=== PATIENT | female | born 1950 | race African-American/Black ===

== ENCOUNTER 2017-04-11 22:12 | Emergency (ER) | payer OTHER ==
[2017-04-11 22:20] VITALS: BMI 38.3
--- NOTE | 2017-04-11 22:36 | PDOC ---
History of Present Illness - General History Source: Patient Exam Limitations: No Limitations - History of Present Illness Initial Comments: 04/11/17 23:11 The patient is a 66 year old female post-procedure day 7 with significant past medical history of recent cardiac catheterization (04/04/17), hypertension, diabetes (diet-controlled), SBO, asthma, and breast CA who presents to the ED for nausea that began earlier today. Patient reports she was in her usual state of health prior to going to bed last night when she woke up this morning with nausea. States having a few episodes of nonbloody vomiting throughout the day. Last meal was around 4pm this evening and subsequently she became more nauseous with mild diffuse abdominal pain. Denies any diarrhea. Patient reports no complications post catheterization procedure, which she had done at [facility]. States she is compliant with her medications. The patient denies fever, chills, cough, SOB, chest pain, and palpitations. The patient denies dysuria, hematuria, urgency, and frequency. Allergies: prednisone, sulfamethoxazole, trimethoprim, IV contrast Social History: No alcohol, tobacco, or drug use reported. Past Surgical History: cardiac catheterization (04/04/17), SBO s/p small bowel resection, hysterectomy PCP: Dr. Kwesi Gomes <Jael Freedman - Last Filed: 04/11/17 23:33> - General History Source: Patient <Rod Benavidez - Last Filed: 04/12/17 04:31> - General Chief Complaint: Nausea/Vomiting Stated Complaint: BLOOD SUGAR PROBLEM Time Seen by Provider: 04/11/17 22:33 Past History <Jael Freedman - Last Filed: 04/11/17 23:33> - Past Medical History Asthma: Yes Cancer: Yes (Breast Ca) Diabetes: Yes GI Disorders: Yes (BOWEL OBSTRUCTION) - Surgical History Abdominal Surgery: (Small Bowel Resection) Cardiac Surgery: Yes (cardiac catheterization) - Immunization History Td Vaccination: No Immunization Up to Date: Yes (FLU UTD) - Psycho/Social/Smoking Cessation Hx Anxiety: No Suicidal Ideation: No Smoking Status: No Smoking History: Never smoked Have you smoked in the past 12 months: No Number of Cigarettes Smoked Daily: 0 Hx Alcohol Use: No Drug/Substance Use Hx: No Substance Use Type: None Hx Substance Use Treatment: No <Rod Benavidez - Last Filed: 04/12/17 04:31> - Past Medical History Allergies/Adverse Reactions: Allergies Allergy/AdvReac Type Severity Reaction Status Date / Time prednisone Allergy Intermediate Swelling Verified 04/12/17 03:05 sulfamethoxazole Allergy Intermediate Swelling Verified 04/12/17 03:05 [From Bactrim DS] trimethoprim Allergy Intermediate Swelling Verified 04/12/17 03:05 [From Bactrim DS] Shellfish Allergy Hives Verified 04/12/17 03:05 wheat [Wheat] Allergy Vomiting Verified 04/12/17 03:05 nuts Allergy Itching Uncoded 04/12/17 03:05 peaches, pears, apples Allergy Vomiting Uncoded 04/12/17 03:05 (juice OK) iv contrast AdvReac Intermediate Uncoded 04/12/17 03:05 Home Medications: Ambulatory Orders Acetaminophen [Tylenol .Regular Strength -] 650 mg PO Q6H PRN #0 tablet Montelukast Na [Singulair -] 10 mg PO HS #0 tablet 02/12/13 Oxycodone HCl/Acetaminophen [Percocet 5-325 mg Tablet] 1 combo PO Q6H PRN #0 tablet 02/12/13 Pantoprazole Sodium [Protonix -] 40 mg PO DAILY #0 tablet.ec 02/12/13 Albuterol Sulfate [Proair Respiclick] 90 mcg IH DAILY 04/11/17 Cyanocobalamin [Vitamin B12 -] 0 mcg PO DAILY 04/11/17 Diltiazem Cd [Cardizem Cd -] 180 mg PO DAILY 04/11/17 Mometasone/Formoterol [Dulera 200 Mcg/5 Mcg Inhaler] 2 inh IH DAILY 04/11/17 Ramipril 5 mg PO DAILY 04/11/17 Vitamin E 0 unit PO DAILY 04/11/17 Ondansetron [Zofran *Odt*] 4 mg SL TID #30 od.tablet 04/12/17 Oxycodone HCl/Acetaminophen [Percocet 5-325 mg Tablet] 1 - 2 tab PO Q6H #20 tablet MDD 4 04/12/17 Review of Systems - Review of Systems Able to Perform ROS?: Yes Comments:: 04/11/17 23:11 CONSTITUTIONAL: Absent: fever, no chills, no fatigue EYES: Absent: visual changes ENT: Absent: ear pain, no sore throat CARDIOVASCULAR: Absent: chest pain, no palpitations RESPIRATORY: Absent: cough, no SOB GI: +diffuse abdominal pain, nausea, vomiting Absent: no constipation, no diarrhea GENITOURINARY: Absent: dysuria, no frequency, no hematuria MUSCULOSKELETAL: Absent: back pain, no arthralgia, no myalgia SKIN: Absent: rash NEURO: Absent: headache <Jael Freedman - Last Filed: 04/11/17 23:33> *Physical Exam - Vital Signs Last Vital Signs Temp Pulse Resp BP Pulse Ox 98.2 F 76 20 130/70 93 L 04/11/17 22:17 04/11/17 22:17 04/11/17 22:17 04/11/17 22:17 04/11/17 22:17 - Physical Exam Comments: 04/11/17 23:12 GENERAL: Well-appearing, well-nourished. No apparent distress. HEENT: Normocephalic, atraumatic. PERRL, EOM intact. CARDIOVASCULAR: Normal S1, S2. Regular rate and rhythm. PULMONARY: Clear to auscultation bilaterally. ABDOMEN: Soft, non-distended, mild diffuse abdominal tenderness. No rebound or guarding. Normoactive bowel sounds. EXTREMITIES: Normal ROM in all four extremities. No gross deformities. SKIN: Warm, dry. No rash NEUROLOGICAL: No focal neurological deficits. <Jael Freedman - Last Filed: 04/11/17 23:33> - Vital Signs Last Vital Signs Temp Pulse Resp BP Pulse Ox 98.2 F 76 20 130/70 93 L 04/11/17 22:17 04/11/17 22:17 04/11/17 22:17 04/11/17 22:17 04/11/17 22:17 <Rod Benavidez - Last Filed: 04/12/17 04:31> Heart Score/ECG Review - ECG Impressions Comment:: 04/11/17 23:33 Sinus rhythm with marked sinus arrhythmia @80bpm Minimal voltage criteria for LVH, may be normal variant Septal infarct, age undetermined Abnormal ECG <SolitariomichaelJael alvarado - Last Filed: 04/11/17 23:33> ED Treatment Course - LABORATORY CBC & Chemistry Diagram: 04/11/17 23:28 04/11/17 23:28 - ADDITIONAL ORDERS Additional order review: Laboratory Results 04/11/17 22:40 POC Glucometer [id number] 04/11/17 22:40 POC Glucometer [id number] <Jael Freedman - Last Filed: 04/11/17 23:33> - LABORATORY CBC & Chemistry Diagram: 04/11/17 23:28 04/11/17 23:28 <Rod Benavidez - Last Filed: 04/12/17 04:31> Medical Decision Making - Medical Decision Making 04/12/17 04:29 Dr. Benavidez: The scribe's documentation has been prepared under my direction and personally reviewed by me in its entirery. I confirm that the note above accurately reflects all work, treatment, procedures, and medical decision making performed by me. Pt found to have a fat containing ventral hernia on CT scan abd/pel. Pt feels slightly better. Will discharge and refer to General surgery <Rod Benavidez - Last Filed: 04/12/17 04:31> *DC/Admit/Observation/Transfer - Attestations Scribe Attestion: 04/11/17 23:12 Documentation prepared by Jael Freedman, acting as nurses medical assistants phlebotomists for Rod Benavidez MD/DO. <Jael Freedman - Last Filed: 04/11/17 23:33> - Discharge Dispostion Admit: No <Rod Benavidez - Last Filed: 04/12/17 04:31> Diagnosis at time of Disposition: Ventral hernia Qualifiers: Obstruction and gangrene presence: without obstruction or gangrene Qualified Code(s): K43.9 - Ventral hernia without obstruction or gangrene - Discharge Dispostion Disposition: HOME Condition at time of disposition: Stable - Referrals Referrals: wKesi Gomes MD [Primary Care Provider] - Gera Valdez MD [Staff Physician] - Glen Coleman MD [Staff Physician] - - Patient Instructions Printed Discharge Instructions: DI for Ventral Hernia - Post Discharge Activity Work/School Note: Back to Work
[2017-04-11] MEDS ORDERED: SODIUM CHLORIDE 1,000 ML IV STA (22:37)
[2017-04-11] MEDS ORDERED: ONDANSETRON 4 MG/2 ML VIAL IVPUSH STA (22:37)
[2017-04-11] MEDS ORDERED: FAMOTIDINE 20 MG/50 ML IVPB 20 MG in PREMIX 50 IVPB ONE (22:37)
[2017-04-11 23:32] LABS: BASOPHIL 0.3 % (0-2.0); EOSINOPHIL 0.3 % (0-4.5); MCH 31.6 pg (25.7-33.7); MCHC 32.7 g/dl (32.0-36.0); MEAN CELL VOLUME 96.4 fl (80-96); MEAN PLT VOLUME 8.1 fl (7.5-11.1); NEUTROPHILS 88.2 % (42.8-82.8); PLATELET COUNT 224 K/MM3 (134-434); RDW 13.5 % (11.6-15.6); WHITE BLOOD COUNT 9.6 K/mm3 (4.0-10.0)
[2017-04-11 23:59] LABS: ALBUMIN 3.5 g/dl (3.4-5.0); AMYLASE 86 U/L (25-115); ANION GAP 9 (8-16); CALCIUM 9.6 mg/dL (8.5-10.1); CO2 31 mmol/L (21-32); CREATININE 0.9 mg/dL (0.55-1.02); GLUCOSE,RANDOM 146 mg/dL (74-106); MAGNESIUM 2.5 mg/dL (1.8-2.4); SGOT/AST 17 U/L (15-37); SGPT/ALT 21 U/L (12-78)
[2017-04-12 00:01] LABS: ALK PHOS 84 U/L (45-117); BILIRUBIN,TOTAL 0.3 mg/dL (0.2-1.0); TOT PROT 7.6 g/dl (6.4-8.2); TROPONIN I < 0.02 ng/ml (0.00-0.05)
[2017-04-12] MEDS ORDERED: FAMOTIDINE 20 MG/50 ML IVPB 50 ML IVPB ONE (00:12)
[2017-04-12 00:14] LABS: INR 1.04 (0.82-1.09); PROTHROMBIN TIME (PATIENT) 11.4 SEC (9.98-11.88)
[2017-04-12] MEDS ORDERED: morphine CARPU-JECT 2 MG/1 ML DISP.SYRIN IVPUSH ONE (00:40)
[2017-04-12] MEDS ORDERED: morphine CARPU-JECT 4 MG/1 ML DISP.SYRIN ONE (00:53)
[2017-04-12 00:59] LABS: ACETONE SERUM NEGATIVE (NEGATIVE)
[2017-04-12 04:17] LABS: URINE APPEARANCE CLEAR; URINE BILIRUBIN NEGATIVE (NEGATIVE); URINE BLOOD NEGATIVE (NEGATIVE); URINE COLOR YELLOW; URINE GLUCOSE (UA) NEGATIVE (NEGATIVE); URINE KETONE NEGATIVE (NEGATIVE); URINE LEUK ESTERASE NEGATIVE (NEGATIVE); URINE NITRITE NEGATIVE (NEGATIVE); URINE PROTEIN NEGATIVE (NEGATIVE); URINE UROBILINOGEN NEGATIVE E.U./dl (0.2-1.0)
[2017-04-12 04:37] VITALS: BP 126/78; PULSE 73; TEMP 98
--- NOTE | 2017-04-13 16:33 | EKG ---
Test Reason : Blood Pressure : / mmHG Vent. Rate : 080 BPM Atrial Rate : 080 BPM P-R Int : 146 ms QRS Dur : 090 ms QT Int : 380 ms P-R-T Axes : 050 044 041 degrees QTc Int : 438 ms SINUS RHYTHM WITH MARKED SINUS ARRHYTHMIA MINIMAL VOLTAGE CRITERIA FOR LVH, MAY BE NORMAL VARIANT SEPTAL INFARCT , AGE UNDETERMINED ABNORMAL ECG WHEN COMPARED WITH ECG OF 27-OCT-2009 11:31, SEPTAL INFARCT IS NOW PRESENT Confirmed by ORI WILLIAMSON MD ([id number]) on 04/13/2017 4:33:24 PM Referred By: Confirmed By:ORI WILLIAMSON MD
--- NOTE | 2017-04-16 16:36 | EKG ---
Test Reason : Blood Pressure : / mmHG Vent. Rate : 079 BPM Atrial Rate : 079 BPM P-R Int : 146 ms QRS Dur : 096 ms QT Int : 390 ms P-R-T Axes : 022 040 038 degrees QTc Int : 447 ms NORMAL SINUS RHYTHM MINIMAL VOLTAGE CRITERIA FOR LVH, MAY BE NORMAL VARIANT BORDERLINE ECG WHEN COMPARED WITH ECG OF 11-APR-2017 23:24, NO SIGNIFICANT CHANGE WAS FOUND Confirmed by THERON SANTIAGO MD ([id number]) on 04/16/2017 4:35:47 PM Referred By: Confirmed By:THERON SANTIAGO MD
== END 2017-04-12 04:38 | disposition home or self-care (01) ==
LOC: JER 22:12
PROC: 3E033GC Introduction of Other Therapeutic Substance into Peripheral Vein, Percutaneous Approach (ICD-10-PCS; principal; 2017-04-11)
PROC: 3E033NZ Introduction of Analgesics, Hypnotics, Sedatives into Peripheral Vein, Percutaneous Approach (ICD-10-PCS; 2017-04-11)
PROC: 3E033GC Introduction of Other Therapeutic Substance into Peripheral Vein, Percutaneous Approach (ICD-10-PCS; 2017-04-11)
DX: K42.9 Umbilical hernia without obstruction or gangrene (principal); Z98.61 Coronary angioplasty status; I10 Essential (primary) hypertension; E11.9 Type 2 diabetes mellitus without complications; J45.909 Unspecified asthma, uncomplicated; Z85.3 Personal history of malignant neoplasm of breast
CPT/HCPCS: 36415; 71010-TC; 74176-TC; 80053; 81003; 82009; 82150; 82550; 83690; 83735; 83880; 84484; 85025; 85610; 93005; 93010; 99283-25

== ENCOUNTER 2017-06-09 20:35 | Emergency (ER) | payer OTHER ==
[2017-06-09 20:59] VITALS: BP 111/74; PULSE 76; TEMP 98.4; BMI 38.3
--- NOTE | 2017-06-09 21:37 | PDOC ---
History of Present Illness - General History Source: Patient Exam Limitations: No Limitations - History of Present Illness Initial Comments: 06/09/17 21:42 The patient is a 66 year old female, with significant past medical history of asthma, hypertension, diabetes (diet-controlled), SBO, and breast CA, who presents to the ED s/p fall today. Pt states that she fell while working, hitting her head on the floor. She denies any loss of consciousness. Pt is now experiencing a headache. She denies having any other injuries or symptoms. PCP: Dr. Gomes <Lizzy Galindo - Last Filed: 06/09/17 21:42> <Gloria Morrow - Last Filed: 06/09/17 22:18> - General Chief Complaint: Pain Stated Complaint: FALL, INJURY AT WORK Time Seen by Provider: 06/09/17 21:17 Past History <Lizzy Galindo - Last Filed: 06/09/17 21:42> - Past Medical History Asthma: Yes Cancer: Yes (Breast Ca) Cardiac Disorders: Yes (A-fib, CHF) Diabetes: Yes GI Disorders: Yes (BOWEL OBSTRUCTION) - Surgical History Abdominal Surgery: Yes (Small Bowel Resection) Cardiac Surgery: Yes (cardiac catheterization) Cholecystectomy: Yes - Immunization History Td Vaccination: No Immunization Up to Date: Yes (FLU UTD) - Psycho/Social/Smoking Cessation Hx Anxiety: No Suicidal Ideation: No Smoking Status: No Smoking History: Never smoked Have you smoked in the past 12 months: No Number of Cigarettes Smoked Daily: 0 Information on smoking cessation initiated: No Hx Alcohol Use: No Drug/Substance Use Hx: No Substance Use Type: None Hx Substance Use Treatment: No <Gloria Morrow - Last Filed: 06/09/17 22:18> - Past Medical History Allergies/Adverse Reactions: Allergies Allergy/AdvReac Type Severity Reaction Status Date / Time prednisone Allergy Intermediate Swelling Verified 06/09/17 21:40 sulfamethoxazole Allergy Intermediate Swelling Verified 06/09/17 21:40 [From Bactrim DS] trimethoprim Allergy Intermediate Swelling Verified 06/09/17 21:40 [From Bactrim DS] Shellfish Allergy Hives Verified 06/09/17 21:40 wheat [Wheat] Allergy Vomiting Verified 06/09/17 21:40 nuts Allergy Itching Uncoded 06/09/17 21:40 peaches, pears, apples Allergy Vomiting Uncoded 06/09/17 21:40 (juice OK) iv contrast AdvReac Intermediate Uncoded 06/09/17 21:40 Home Medications: Ambulatory Orders Albuterol Sulfate [Proair Respiclick] 90 mcg IH DAILY 04/11/17 Mometasone/Formoterol [Dulera 200 Mcg/5 Mcg Inhaler] 2 inh IH DAILY 04/11/17 Review of Systems - Review of Systems Able to Perform ROS?: Yes Comments:: 06/09/17 21:42 GENERAL/CONSTITUTIONAL: No fever or chills. No weakness. HEAD, EYES, EARS, NOSE AND THROAT: No change in vision. No ear pain or discharge. No sore throat. CARDIOVASCULAR: No chest pain or shortness of breath. RESPIRATORY: No cough, wheezing, or hemoptysis. GASTROINTESTINAL: No nausea, vomiting, diarrhea or constipation. GENITOURINARY: No dysuria, frequency, or change in urination. MUSCULOSKELETAL: No joint or muscle swelling or pain. No neck or back pain. SKIN: No rash NEUROLOGIC: +headache. No vertigo, loss of consciousness, or change in strength/ sensation. ENDOCRINE: No increased thirst. No abnormal weight change. HEMATOLOGIC/LYMPHATIC: No anemia, easy bleeding, or history of blood clots. ALLERGIC/IMMUNOLOGIC: No hives or skin allergy. <Lizzy Galindo - Last Filed: 06/09/17 21:42> *Physical Exam - Vital Signs Last Vital Signs Temp Pulse Resp BP Pulse Ox 98.4 F 76 20 111/74 96 06/09/17 20:51 06/09/17 20:51 06/09/17 20:51 06/09/17 20:51 06/09/17 21:36 <Lizzy Galindo - Last Filed: 06/09/17 21:42> - Vital Signs Last Vital Signs Temp Pulse Resp BP Pulse Ox 98.4 F 76 20 111/74 96 06/09/17 20:51 06/09/17 20:51 06/09/17 20:51 06/09/17 20:51 06/09/17 20:51 - Physical Exam Comments: GENERAL: Awake, alert, and fully oriented, in no acute distress HEAD: Small hematoma to occiput. EYES: PERRLA, EOMI, sclera anicteric, conjunctiva clear ENT: Auricles normal inspection, hearing grossly normal, nares patent, oropharynx clear without exudates. Moist mucosa NECK: Normal ROM, supple, no lymphadenopathy, JVD, or masses LUNGS: Breath sounds equal, clear to auscultation bilaterally. No wheezes, and no crackles HEART: Regular rate and rhythm, normal S1 and S2, no murmurs, rubs or gallops ABDOMEN: Soft, nontender, normoactive bowel sounds. No guarding, no rebound. No masses EXTREMITIES: Normal range of motion, no edema. No clubbing or cyanosis. No cords, erythema, or tenderness NEUROLOGICAL: Cranial nerves II through XII grossly intact. Normal speech, normal gait. Strength and sensation intact. SKIN: Warm, Dry, normal turgor, no rashes or lesions noted. SPINE: No midline tenderness. <Gloria Morrow - Last Filed: 06/09/17 22:18> *DC/Admit/Observation/Transfer - Attestations Scribe Attestion: 06/09/17 21:43 Documentation prepared by Lizzy Galindo, acting as medical psychotherapist for Gloria Morrow MD. <Lizzy Galindo - Last Filed: 06/09/17 21:42> - Discharge Dispostion Admit: No <Gloria Morrow - Last Filed: 06/09/17 22:18> Diagnosis at time of Disposition: Head injury Qualifiers: Encounter type: initial encounter Qualified Code(s): S09.90XA - Unspecified injury of head, initial encounter - Discharge Dispostion Disposition: HOME Condition at time of disposition: Stable - Referrals Referrals: Kwesi Gomes MD [Primary Care Provider] - - Patient Instructions Printed Discharge Instructions: DI for Closed Head Injury
[2017-06-09] MEDS ORDERED: ACETAMINOPHEN 325 MG TABLET (FP) PO ONE (21:38)
[2017-06-09] MEDS ORDERED: ACETAMINOPHEN 325 MG TABLET (FP) ONE (21:44)
== END 2017-06-09 23:04 | disposition home or self-care (01) ==
LOC: JER 20:35
DX: S09.8XXA Other specified injuries of head, initial encounter (principal); W07.XXXA Fall from chair, initial encounter; Y93.89 Activity, other specified; Y92.128 Other place in nursing home as the place of occurrence of the external cause; Y99.0 Civilian activity done for income or pay; I10 Essential (primary) hypertension; J44.9 Chronic obstructive pulmonary disease, unspecified; E11.9 Type 2 diabetes mellitus without complications; I48.91 Unspecified atrial fibrillation; Z95.5 Presence of coronary angioplasty implant and graft; Z85.3 Personal history of malignant neoplasm of breast
CPT/HCPCS: 70450-TC; 99282-25

== ENCOUNTER 2019-04-26 06:02 | Day surgery (SDC) | payer OTHER ==
[2019-04-25 14:00] VITALS: BMI 40.6
[2019-04-26] MEDS ORDERED: oxyCODONE HCL 5 MG TABLET PO PRN ×2 (07:54)
[2019-04-26] MEDS ORDERED: ONDANSETRON 4 MG/2 ML VIAL IVPUSH PRN (07:54)
[2019-04-26] MEDS ORDERED: LIDOCAINE HCL/PF 2% SDV 5ML VIAL ONE (08:45)
[2019-04-26] MEDS ORDERED: PROPOFOL 20 ML ONE (08:45)
[2019-04-26] MEDS ORDERED: BUPIVACAINE HCL/PF 0.5% (5MG/ML) 10 ML VIAL ONE (10:04)
[2019-04-26] MEDS ORDERED: MIDAZOLAM HCL 2 MG/2 ML SINGLE DOSE VIAL ONE (10:11)
[2019-04-26] MEDS ORDERED: IOHEXOL 180 MG/1 ML ML IJ ONE (10:23)
[2019-04-26] MEDS ORDERED: LIDOCAINE HCL 1%, 10 MG/ML (50 mL VIAL) IJ ONE (10:23)
[2019-04-26] MEDS ORDERED: BUPIVACAINE HCL/PF 0.25% (2.5MG/ML) 10 ML VIAL IJ ONE (10:23)
[2019-04-26] MEDS ORDERED: BETAMET ACET/BETAMET NA PH 30 MG/5 ML VIAL IJ ONE (10:23)
[2019-04-26 11:50] VITALS: TEMP 97.5
[2019-04-26 12:43] VITALS: BP 110/71; PULSE 75
--- NOTE | 2019-04-30 12:53 | PROC ---
Procedure Note Procedure: Date of service: 04/26/2019 Preoperative Diagnosis: Low back pain and lumbar radiculopathy on right Postoperative Diagnosis: Same Procedure Performed: Lumbar Epidural Steroid Injection (LESI) on Right L4-5 with NO dye under Fluoroscopy Anesthesia: Local / MAC Anesthesiologist: Procedure: I discussed with the patient in detail about the risks, benefits, and alternatives to treatment not only limited to infection, headache, numbness , weakness, and injury to nerves, blood vessels and muscles. The patient understood, agreed and signed the written consent. The patient was placed in the prone position with the head, abdomen and legs supported with the pillows. The lumbosacral area was prepped and draped with Betadine times three in a sterile fashion. Lumbar vertebrae were identified under the C-arm. At L4-5 level on the right side, 3 ml of 1 % Lidocaine was infiltrated into the skin and subcutaneous tissue. A 3 inch, #20 gauge Tuohy needle was advanced to the epidural space with loss of resistance technique under fluoroscopic guidance. Aspiration was negative for cerebrospinal fluid and blood. . A solution of 2.5 ml of Celestone 2.5 ml of 0.25% Marcaine and a total of 5 ml was injected slowly. While Tuohy needle was withdrawn 2.0 ml of 1 % Lidocaine was infiltrated. Bleeding was checked. Betadine was wiped off. A sterile bandage was placed. The patient tolerated the procedure well. There were no immediate complications. The patient was transferred to the recovery room. The patient was observed for some time and discharged as per ASU criteria. The patient was told to apply ice at the injection site. Follow up appointment was given and also call my office at [phone]. If there is any problem, call my office or report to Emergency Room. Basil Gaytan M.D.
== END 2019-04-26 13:45 | disposition home or self-care (01) ==
LOC: JASU-SURG 06:02
PROVIDERS: ATTEND Physical Medicine & Rehabilitation
PROC: 3E0R33Z Introduction of Anti-inflammatory into Spinal Canal, Percutaneous Approach (ICD-10-PCS; 2019-04-26)
PROC: B01BZZZ Fluoroscopy of Spinal Cord (ICD-10-PCS; 2019-04-26)
PROC: 3E0R3BZ Introduction of Anesthetic Agent into Spinal Canal, Percutaneous Approach (ICD-10-PCS; principal; 2019-04-26 10:30)
DX: M54.16 Radiculopathy, lumbar region (principal); M54.89 Other dorsalgia
CPT/HCPCS: 76000-TC-FY; 82962; 94760

== ENCOUNTER 2019-05-29 06:15 | Day surgery (SDC) | payer OTHER ==
[2019-05-28 13:47] VITALS: BMI 40.6
--- NOTE | 2019-05-29 08:06 | HP ---
[facility] - Chief Complaint Chief Complaint: right shoulder pain History of Present Illness: right shoulder impingement History Source: Patient Limitations to Obtaining History: No Limitations - Past Medical History Allergies/Adverse Reactions: Allergies Allergy/AdvReac Type Severity Reaction Status Date / Time prednisone Allergy Intermediate Swelling Verified 05/28/19 14:14 sulfamethoxazole Allergy Intermediate Swelling Verified 05/28/19 14:14 [From Bactrim DS] trimethoprim Allergy Intermediate Swelling Verified 05/28/19 14:14 [From Bactrim DS] latex Allergy Rash Verified 05/28/19 14:14 Shellfish Allergy Hives Verified 05/28/19 14:14 wheat [Wheat] Allergy Vomiting Verified 05/28/19 14:14 nuts Allergy Itching Uncoded 05/28/19 14:14 peaches, pears, apples Allergy Vomiting Uncoded 05/28/19 14:14 (juice OK) iv contrast AdvReac Intermediate Uncoded 05/28/19 14:14 - Current Medications Current Medications: Home Medications Medication Instructions Recorded Albuterol Sulfate [Proair Hfa] 1 puff IH PRN PRN 04/05/19 Dapagliflozin Propanediol [Farxiga] 10 mg PO DAILY 04/05/19 Mirabegron [Myrbetriq] 25 mg PO DAILY 04/25/19 Ibuprofen/Famotidine [Duexis 1 each PO Q8H PRN 04/26/19 800-26.6 mg Tablet] Acetaminophen [Tylenol -] 500 mg PO PRN PRN 05/28/19 Aspirin Coated [Ecotrin -] 81 mg PO DAILY 05/28/19 Diltiazem Cd [Cardizem Cd -] 240 mg PO DAILY 05/28/19 Gabapentin 400 mg PO TID 05/28/19 Ramipril 5 mg PO DAILY 05/28/19 Satellite Physical Exam - Physical Examination Vital Signs: Vital Signs Period Temp Pulse Resp BP Sys/Keating Pulse Ox Last 24 Hr 98.3 F 83 16 115/64 93 General Appearance: Well Nourished ENT: Clear Lung: Clear to auscultation Heart: Regular rate & rhythm Breasts: Soft Abdomen: Soft Extremities: No edema Satellite Impression/Plan - Impression/Plan Impression: right shoulder impingement Operative Procedure: right shoulder arthroscopy Date to be Performed: 05/29/19
[2019-05-29] MEDS ORDERED: DEXAMETHASONE SOD PHOSPHATE/PF 10 MG/ML SDV ONE (08:30)
[2019-05-29] MEDS ORDERED: ROPIVACAINE HCL 0.5% 30ML VIAL ONE (08:30)
[2019-05-29] MEDS ORDERED: MIDAZOLAM HCL 2 MG/2 ML SINGLE DOSE VIAL ONE ×2 (08:32)
[2019-05-29] MEDS ORDERED: ceFAZolin SODIUM 1 GM VIAL IVPB ONE (09:27)
[2019-05-29] MEDS ORDERED: ONDANSETRON 4 MG/2 ML VIAL IVPUSH PRN (10:25)
[2019-05-29] MEDS ORDERED: oxyCODONE HCL 5 MG TABLET PO PRN (10:25)
[2019-05-29] MEDS ORDERED: LACTATED RINGERS SOLUTION 1,000 ML IV SCH (10:30)
--- NOTE | 2019-05-29 10:46 | OP ---
Operative Note - Note: Operative Date: 05/29/19 Pre-Operative Diagnosis: right shoulder impingement syndrome Operation: right shoulder arthroscopy, subacromial decompression Post-Operative Diagnosis: Same as Pre-op Surgeon: Jitendra Camarillo Anesthesiologist/ENERGY CONSERVATION SPECIALIST: Ronald Rushing Anesthesia: Local, MAC Specimens Removed: shavings Estimated Blood Loss (mls): 75 Drains, Volume Out (mls): 0 Blood Volume Replaced (mls): 0 Fluid Volume Replaced (mls): 1,000 Operative Report Dictated: Yes
--- NOTE | 2019-05-29 11:34 | OP ---
DATE OF OPERATION: 05/29/2019 PREOPERATIVE DIAGNOSIS: Right shoulder impingement syndrome. POSTOPERATIVE DIAGNOSIS: Right shoulder impingement syndrome. PROCEDURE: Right shoulder arthroscopy, subacromial decompression. SURGEON: Sarah Hartmann MD OUTCOMES MANAGER: None. CAR DESIGNER: Frederick Rushing CRNA ANESTHESIOLOGIST: Alexandra Gaffney MD ANESTHESIA: Right interscalene block with MAC anesthesia. DRAINS: None. COMPLICATIONS: None. SPECIMENS: Arthroscopic shavings. BLOOD LOSS: 75 mL. BLOOD GIVEN: None. FLUID REPLACEMENT: PlasmaLyte,1000 mL. DESCRIPTION OF PROCEDURE: The patient is a 68-year-old female with a preoperative diagnosis of significant right shoulder pain and subacromial impingement syndrome. After understanding the potential risks, complications, alternatives, and benefits of surgery versus nonsurgical treatment, the patient elected to undergo this procedure. Patient brought to the operating room, peripheral IV placed, and intravenous sedation was given. She was given 2 g of IV Ancef, and a right interscalene block was performed. She was placed in the beach-chair position with ample padding throughout. The right upper extremity was prepped and draped in sterile fashion. The bony landmarks were marked out with a marking pen. Posterior portal with diagnostic glenohumeral arthroscopy was performed. 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 The labrum was intact as was the biceps tendon. The undersurface of the rotator cuff looked fine. The area was copiously irrigated and washed out. Next, our attention turned to the subacromial space. A lateral portal was established under direct visualization using a spinal needle and a No. 11 scalpel blade and a Green cannula. It was introduced into the subacromial space. The patient had a tremendous amount of inflammatory bursitis. This was removed with the ArthroCare Wand. Once the soft tissue bursectomy was performed including subacromial and subdeltoid bursectomy, I was able to directly visualize the top of the rotator cuff, and it looked okay. There were no tears. Additional soft tissue bursectomy was done, and after an extensive debridement, a large subacromial bony spur was exposed. This was taken down with the 5.5-mm oval bur and the straight shaver, photographs taken before and after, and there was no subclavicular spur. The top surface of the rotator cuff was again visualized through putting the arm through a full range of motion and overall it looked quite good. The area was copiously irrigated and washed out. All instrumentation and excess saline and debris were removed. The area was then washed and dried. The incisions were closed with 3-0 nylon sutures and Aquacel dressing. Patients arm was put into a sling. Total operative repair was about 45 minutes. She was brought down out of the beach-chair position and brought to the ambulatory recovery room in stable condition. There were no complications during the case. The patient did well. Blood loss 75 mL. SARAH HARTMANN M.D. [id number]
[2019-05-29 13:50] VITALS: TEMP 97.8
[2019-05-29 14:00] VITALS: BP 145/85; PULSE 90
--- NOTE | 2019-05-30 15:36 | PATH ---
Surgical Pathology Report Patient Name: MAC DIEZ Med. Rec. #: [id number] /Age/Gender: 1950 (Age: 68) / F Account: [id number] Location: [facility] SURGICAL Taken: 05/29/2019 Received: 05/29/2019 Reported: 05/30/2019 Physicians: Jitendra Camarillo M.D. Specimen(s) Received RIGHT SHOULDER SHAVINGS Clinical History Right shoulder tear Final Diagnosis SHOULDER SHAVINGS, RIGHT, ARTHROSCOPY AND SUBACROMIAL DECOMPRESSION: FRAGMENTS OF BENIGN CARTILAGE, DENSE FIBROCONNECTIVE TISSUE, ADIPOSE TISSUE, AND SKELETAL MUSCLE. Electronically Signed Rhonda Gr M.D. Gross Description Received in formalin, labeled "right shoulder shavings," is a 4.5 x 3.0 x 0.3 cm. aggregate of breen-yellow soft tissue fragments. A senior account representative portion is submitted in one cassette. /05/29/2019 saudi05/29/2019
== END 2019-05-29 14:15 | disposition home or self-care (01) ==
LOC: JASU-SURG 06:15
PROVIDERS: ATTEND Orthopaedic Surgery
PROC: 0RNJ4ZZ Release Right Shoulder Joint, Percutaneous Endoscopic Approach (ICD-10-PCS; principal; 2019-05-29 09:00)
DX: M75.41 Impingement syndrome of right shoulder (principal); I48.91 Unspecified atrial fibrillation; Z79.01 Long term (current) use of anticoagulants; I10 Essential (primary) hypertension; E11.9 Type 2 diabetes mellitus without complications; J45.909 Unspecified asthma, uncomplicated
CPT/HCPCS: 82962; 88304-TC; 94760

== ENCOUNTER 2019-06-21 07:26 | Day surgery (SDC) | payer OTHER ==
[2019-06-20 15:09] VITALS: BMI 40.6
[2019-06-21] MEDS ORDERED: PROPOFOL 20 ML ONE (10:46)
[2019-06-21] MEDS ORDERED: MIDAZOLAM HCL 2 MG/2 ML SINGLE DOSE VIAL ONE (10:47)
[2019-06-21 12:02] VITALS: TEMP 97.9
[2019-06-21 14:23] VITALS: BP 119/73; PULSE 86
--- NOTE | 2019-07-02 21:44 | PROC ---
Procedure Note Procedure: Date of service: 06/21/2019 Preoperative Diagnosis: Low back pain and lumbar radiculopathy on right Postoperative Diagnosis: Same Procedure Performed: Lumbar Epidural Steroid Injection (LESI) on Right L4-5 with NO dye under Fluoroscopy Anesthesia: Local / MAC Anesthesiologist: Procedure: I discussed with the patient in detail about the risks, benefits, and alternatives to treatment not only limited to infection, headache, numbness , weakness, and injury to nerves, blood vessels and muscles. The patient understood, agreed and signed the written consent. The patient was placed in the prone position with the head, abdomen and legs supported with the pillows. The lumbosacral area was prepped and draped with Betadine times three in a sterile fashion. Lumbar vertebrae were identified under the C-arm. At L4-5 level on the right side, 3 ml of 1 % Lidocaine was infiltrated into the skin and subcutaneous tissue. A 3 inch, #20 gauge Tuohy needle was advanced to the epidural space with loss of resistance technique under fluoroscopic guidance. Aspiration was negative for cerebrospinal fluid and blood. A solution of 2.5 ml of Celestone, 2.5 ml of 0.25% Marcaine and a total of 5 ml was injected slowly. While Tuohy needle was withdrawn 2.0 ml of 1 % Lidocaine was infiltrated. Bleeding was checked. Betadine was wiped off. A sterile bandage was placed. The patient tolerated the procedure well. There were no immediate complications. The patient was transferred to the recovery room. The patient was observed for some time and discharged as per ASU criteria. The patient was told to apply ice at the injection site. Follow up appointment was given and also call my office at [phone]. If there is any problem, call my office or report to Emergency Room. Basil Gaytan M.D.
== END 2019-06-21 14:30 | disposition home or self-care (01) ==
LOC: JASU-SURG 07:26
PROVIDERS: ATTEND Physical Medicine & Rehabilitation
PROC: 3E0R33Z Introduction of Anti-inflammatory into Spinal Canal, Percutaneous Approach (ICD-10-PCS; 2019-06-21)
PROC: B01BZZZ Fluoroscopy of Spinal Cord (ICD-10-PCS; 2019-06-21)
PROC: 3E0R3BZ Introduction of Anesthetic Agent into Spinal Canal, Percutaneous Approach (ICD-10-PCS; principal; 2019-06-21 10:30)
DX: M54.16 Radiculopathy, lumbar region (principal); M54.5 Low back pain
CPT/HCPCS: 76000-TC-FY

== ENCOUNTER 2019-07-19 05:55 | Day surgery (SDC) | payer OTHER ==
[2019-07-18 12:31] VITALS: BMI 39.3
[2019-07-19] MEDS ORDERED: LIDOCAINE HCL 1%, 10 MG/ML (20ML VIAL) ONE (07:30)
[2019-07-19] MEDS ORDERED: BETAMET ACET/BETAMET NA PH 30 MG/5 ML VIAL ONE (07:30)
[2019-07-19] MEDS ORDERED: BUPIVACAINE HCL/PF 0.25% (2.5MG/ML) 10 ML VIAL ONE ×2 (07:30→07:31)
[2019-07-19] MEDS ORDERED: PROPOFOL 20 ML ONE ×3 (08:01)
[2019-07-19] MEDS ORDERED: LIDOCAINE HCL/PF 2% SDV 5ML VIAL ONE (08:01)
[2019-07-19] MEDS ORDERED: MIDAZOLAM HCL 2 MG/2 ML SINGLE DOSE VIAL ONE (08:47)
[2019-07-19] MEDS ORDERED: METOPROLOL TARTRATE 5 MG/5 ML VIAL ONE (08:50)
[2019-07-19] MEDS ORDERED: BACITRACIN 15 GM TUBE TOPICAL OINTMENT ONE (08:54)
[2019-07-19] MEDS ORDERED: LIDOCAINE HCL 1%, 10 MG/ML (20ML VIAL) PNB ONE (09:00)
[2019-07-19] MEDS ORDERED: BUPIVACAINE HCL/PF 0.5% (5MG/ML) 10 ML VIAL IJ ONE (09:00)
[2019-07-19 12:29] VITALS: BP 132/80; PULSE 79; TEMP 98.5
--- NOTE | 2019-07-22 21:53 | PROC ---
Procedure Note Procedure: Date of service: 07/19/2019 Preoperative Diagnosis: Low back pain Postoperative Diagnosis: Same Procedure Performed: Lumbar Facet Diagnostic Blocks L3-S1 Bilaterally with dye under Fluoroscopy Anesthesia: Local / MAC Anesthesiologist: Procedure: I discussed with the patient in detail about the risks, benefits and alternatives to treatment not only limited to infection, headache, numbness, weakness and injury to nerves, spinal cord, blood vessels and muscles. The patient understood, agreed and signed the written consent. The patient was placed in the prone position with the head, abdomen and legs supported with the pillows. The patients lower back was prepped and draped in a sterile fashion. Under C-arm and Scottie dog view eye was identified the L2-3, L3-4 and L4-5 levels on Left side. At the level of L3-4 (L3) left , 2 ml of 2% Lidocaine was infiltrated into the skin and subcutaneous tissue. A 5 inch #22 guage spinal needle was used to approach the eye of the Scottie dog in the oblique view until the tip of the needle contacted the bone with the use of intermittent fluoroscopy. Needle placement was confirmed both in the AP and oblique view. Aspiration was done which was negative for blood. 0.20 ml of dye omnipaque was injected to see the spread of the dye. A solution of 0.5 ml of preservative free 0.5% Marcaine was injected at this level. While the needle was withdrawn 1 ml of 2% Lidocaine was infiltrated. Similarprocedure was repeated at left/ Right L4-5 (L4) and L5-S1 (L5) level and Rt L3-4 . The patient tolerated the procedure well. Bleeding was checked. There were no immediate complications. The patient was observed and asked about pain level. The patient mentioned that there was improvement was more than 90%. The patient was told to apply ice at the injection sites. If there is any problem, call my office or report to the ER . The patient was discharged as per [facility] criteria Basil Gaytan M.D.
== END 2019-07-19 11:15 | disposition home or self-care (01) ==
LOC: JASU-SURG 05:55
PROVIDERS: ATTEND Physical Medicine & Rehabilitation
PROC: 3E0T33Z Introduction of Anti-inflammatory into Peripheral Nerves and Plexi, Percutaneous Approach (ICD-10-PCS; 2019-07-19)
PROC: BR16YZZ Fluoroscopy of Lumbar Facet Joint(s) using Other Contrast (ICD-10-PCS; 2019-07-19)
PROC: 3E0T3BZ Introduction of Anesthetic Agent into Peripheral Nerves and Plexi, Percutaneous Approach (ICD-10-PCS; principal; 2019-07-19 08:00)
DX: M54.16 Radiculopathy, lumbar region (principal); M54.5 Low back pain
CPT/HCPCS: 76000-TC-FY; 82962

== ENCOUNTER 2019-09-13 06:04 | Day surgery (SDC) | payer OTHER ==
[2019-09-12 13:47] VITALS: BMI 39.6
[~2019-09-13 06:04] MED LIST: BETAMET ACET/BETAMET NA PH 30 MG/5 ML VIAL IJ ONE; BUPIVACAINE HCL/PF 0.25% (2.5MG/ML) 10 ML VIAL IJ ONE; BUPIVACAINE HCL/PF 0.5% (5 MG/ML) 30 ML VIAL IJ ONE; IOHEXOL 180 MG/1 ML ML IJ ONE; LIDOCAINE HCL 1%, 10 MG/ML (50 mL VIAL) IJ ONE
[2019-09-13] MEDS ORDERED: BETAMET ACET/BETAMET NA PH 30 MG/5 ML VIAL ONE (07:31)
[2019-09-13] MEDS ORDERED: LIDOCAINE HCL 1%, 10 MG/ML (20ML VIAL) ONE (07:31)
[2019-09-13] MEDS ORDERED: BUPIVACAINE HCL/PF 0.25% (2.5MG/ML) 10 ML VIAL ONE (07:31)
[2019-09-13] MEDS ORDERED: PROPOFOL 20 ML ONE ×2 (08:15)
[2019-09-13] MEDS ORDERED: LIDOCAINE HCL/PF 2% SDV 5ML VIAL ONE (08:15)
[2019-09-13] MEDS ORDERED: BUPIVACAINE HCL/PF 0.5% (5 MG/ML) 30 ML VIAL IJ ONE ×3 (08:29→08:50)
[2019-09-13] MEDS ORDERED: LIDOCAINE HCL 1%, 10 MG/ML (50 mL VIAL) IJ ONE ×2 (08:50)
[2019-09-13 10:00] VITALS: BP 106/68; PULSE 80; TEMP 98.3
--- NOTE | 2019-09-17 21:07 | PROC ---
Procedure Note Procedure: Date of service: 09/13/2019 Preoperative Diagnosis: Low back pain and Lumbar facet Arthropathy on right / Left Postoperative Diagnosis: Same Procedure Performed: Lumbar Facet Diagnostic Blocks on Right / Left L4-5/ L5-S1 with NO dye under Fluoroscopy Anesthesia: Local / MAC Anesthesiologist: Procedure: I discussed with the patient in detail about the risks, benefits and alternatives to treatment not only limited to infection, headache, numbness, weakness and injury to nerves, spinal cord, blood vessels and muscles. The patient understood, agreed and signed the written consent. The patient was placed in the prone position with the head, abdomen and legs supported with the pillows. The patients lower back was prepped and draped in a sterile fashion. Under C-arm and Scottie dog view eye was identified the L2-3, L3-4 and L4-5 levels on Left side. At the level of L3-4 (L3), 2 ml of 2% Lidocaine was infiltrated into the skin and subcutaneous tissue. A 5 inch #22 guage spinal needle was used to approach the eye of the Scottie dog in the oblique view until the tip of the needle contacted the bone with the use of intermittent fluoroscopy. Needle placement was confirmed both in the AP and oblique view. Aspiration was done which was negative for blood. A solution of 0.5 ml of preservative free 0.5% Marcaine was injected at this level. While the needle was withdrawn 1 ml of 2% Lidocaine was infiltrated. Similar procedure was repeated at left/ Right L4-5 (L4) and L5-S1 (L5) and Right L3-4 level. The patient tolerated the procedure well. Bleeding was checked. There were no immediate complications. The patient was observed and asked about pain level. The patient mentioned that there was improvement was more than 80%. The patient was told to apply ice at the injection sites. If there is any problem, call my office or report to the ER Patient was discharged as per [facility] criteria. Basil Gaytan M.D.
== END 2019-09-13 10:30 | disposition home or self-care (01) ==
LOC: JASU-SURG 06:04
PROVIDERS: ATTEND Physical Medicine & Rehabilitation
PROC: 3E0T33Z Introduction of Anti-inflammatory into Peripheral Nerves and Plexi, Percutaneous Approach (ICD-10-PCS; 2019-09-13)
PROC: BR16ZZZ Fluoroscopy of Lumbar Facet Joint(s) (ICD-10-PCS; 2019-09-13)
PROC: 3E0T3BZ Introduction of Anesthetic Agent into Peripheral Nerves and Plexi, Percutaneous Approach (ICD-10-PCS; principal; 2019-09-13 09:00)
DX: M12.88 Other specific arthropathies, not elsewhere classified, other specified site (principal); M54.5 Low back pain; E11.9 Type 2 diabetes mellitus without complications
CPT/HCPCS: 76000-TC-FY; 82962

== ENCOUNTER 2024-06-17 20:16 | Inpatient (IN) | payer OTHER ==
[2024-06-17] MEDS ORDERED: ONDANSETRON 4 MG/2 ML VIAL ONE (22:13)
[2024-06-17] MEDS ORDERED: ACETAMINOPHEN INJECTION 100 ML IVPB ONE (22:13)
[2024-06-17] MEDS ORDERED: FAMOTIDINE 10 MG/ML VIAL IVPB ONE (22:14)
[2024-06-17] MEDS: ONDANSETRON 4 MG/2 ML VIAL IVPUSH ONE (22:25)
[2024-06-17] MEDS: ACETAMINOPHEN 1000 MG/100 ML BAG IVPB ONE (22:25)
[2024-06-17] MEDS: FAMOTIDINE 20 MG/50 ML IVPB 20 MG/50 ML MG IVPB ONE (22:25)
[2024-06-17] MEDS: SODIUM CHLORIDE 0.9% 500 ML INFUS.BAG IV ONE (22:25)
[2024-06-17 22:38] LABS: POTASSIUM 3.6 mmol/L (3.5-5.1)
[2024-06-17 22:40] LABS: CALCIUM 9.9 mg/dL (8.5-10.1)
[2024-06-17 22:41] LABS: ALBUMIN 3.6 g/dl (3.4-5.0); BLOOD UREA NITROGEN 20.1 mg/dL (7-18); MAGNESIUM 2.2 mg/dL (1.8-2.4)
[2024-06-17 22:42] LABS: BASO % 0.1 % (0-2.0); HEMATOCRIT 48.1 % (32.4-45.2); HEMOGLOBIN 16.2 GM/dL (10.7-15.3); LYMPH % 11.6 % (8-40); MCH 32.5 pg (25.7-33.7); MCHC 33.7 g/dl (32.0-36.0); MEAN CELL VOLUME 96.3 fl (80-96); MEAN PLT VOLUME 7.8 fl (7.5-11.1); MONO % 6.8 % (3.8-10.2); NEUT % 81.5 % (42.8-82.8); PLATELET COUNT 309 10^3/uL (134-434); RDW 14.2 % (11.6-15.6); WHITE BLOOD COUNT 8.7 K/mm3 (4.0-10.0)
[2024-06-17 22:43] LABS: INR 1.07 (0.83-1.09); PROTHROMBIN TIME (PATIENT) 12.3 SEC (9.7-13.0)
[2024-06-17 22:44] LABS: CREATININE 0.7 mg/dL (0.55-1.3)
[2024-06-17 22:45] LABS: BILIRUBIN,TOTAL 0.5 mg/dL (0.2-1); TOT PROT 7.9 g/dl (6.4-8.2)
[2024-06-17 22:46] LABS: ACTIVATED PTT 31.1 SECONDS (25.2-36.5)
[2024-06-18] MEDS ORDERED: ONDANSETRON 4 MG/2 ML VIAL ONE (00:02)
[2024-06-18] MEDS: ONDANSETRON 4 MG/2 ML VIAL IVPUSH ONE (00:20)
[2024-06-18] MEDS: SODIUM CHLORIDE 1,000 ML IV SCH (04:37)
[2024-06-18] MEDS ORDERED: ALBUTEROL SO4 HFA INHALER IH PRN (05:04)
[2024-06-18 06:51] LABS: BASO % 0.2 % (0-2.0); EOS % 0.3 % (0-4.5); HEMOGLOBIN 16.4 GM/dL (10.7-15.3); LYMPH % 5.8 % (8-40); MCH 32.6 pg (25.7-33.7); MCHC 33.4 g/dl (32.0-36.0); MEAN CELL VOLUME 97.6 fl (80-96); MEAN PLT VOLUME 7.8 fl (7.5-11.1); MONO % 8.6 % (3.8-10.2); NEUT % 85.1 % (42.8-82.8); PLATELET COUNT 269 10^3/uL (134-434); RBC 5.02 M/mm3 (3.60-5.2); RDW 14.5 % (11.6-15.6); WHITE BLOOD COUNT 11.9 K/mm3 (4.0-10.0)
[2024-06-18] MEDS: SODIUM CHLORIDE 0.9% 500 ML INFUS.BAG IV ONE (06:53)
[2024-06-18 07:07] LABS: POTASSIUM 3.4 mmol/L (3.5-5.1)
[2024-06-18 07:09] LABS: CALCIUM 9.2 mg/dL (8.5-10.1)
[2024-06-18 07:10] LABS: ALBUMIN 3.3 g/dl (3.4-5.0); BLOOD UREA NITROGEN 19.2 mg/dL (7-18)
[2024-06-18 07:13] LABS: CREATININE 0.6 mg/dL (0.55-1.3); PHOSPHOROUS 3.9 mg/dL (2.5-4.9)
[2024-06-18 07:15] LABS: BILIRUBIN,TOTAL 0.6 mg/dL (0.2-1); TOT PROT 7.2 g/dl (6.4-8.2)
[2024-06-18] MEDS: INSULIN ASPART SLIDING SCALE (NOVOLOG) 1 VIAL SQ SCH (07:25)
[2024-06-18] MEDS ORDERED: ACETAMINOPHEN INJECTION 100 ML IVPB ONE (08:47)
[2024-06-18] MEDS: ACETAMINOPHEN 1000 MG/100 ML BAG IVPB PRN (08:50)
[2024-06-18] MEDS ORDERED: ENOXAPARIN NA (PORCINE) 40 MG/0.4 ML DISP.SYRIN SQ SCH (10:00)
[2024-06-18] MEDS: PROCHLORPERAZINE INJECTION 10 MG/2 ML VIAL IVPB PRN (14:56)
[2024-06-18 15:52] VITALS: BMI 34.9
[2024-06-18] MEDS: ENOXAPARIN NA (PORCINE) 100 MG/1 ML DISP.SYRIN SQ SCH (23:09)
[2024-06-19 02:16] LABS: PH,URINE 5.5 (5.0-8.0); URINE APPEARANCE CLEAR; URINE BILIRUBIN NEGATIVE (NEGATIVE); URINE COLOR YELLOW; URINE GLUCOSE (UA) NEGATIVE (NEGATIVE); URINE KETONE 1+ (NEGATIVE); URINE LEUK ESTERASE NEGATIVE (NEGATIVE); URINE NITRITE NEGATIVE (NEGATIVE); URINE PROTEIN TRACE (NEGATIVE)
[2024-06-19] MEDS: DEXTROSE 50%-WATER 25 GM/50 ML DISP.SYRIN IVPUSH ONE (06:24)
[2024-06-19 08:40] LABS: BASO % 0.4 % (0-2.0); EOS % 1.9 % (0-4.5); HEMATOCRIT 42.8 % (32.4-45.2); HEMOGLOBIN 14.6 GM/dL (10.7-15.3); LYMPH % 23.5 % (8-40); MCH 33.1 pg (25.7-33.7); MCHC 34.1 g/dl (32.0-36.0); MEAN PLT VOLUME 7.7 fl (7.5-11.1); MONO % 9.2 % (3.8-10.2); PLATELET COUNT 254 10^3/uL (134-434); RBC 4.41 M/mm3 (3.60-5.2); RDW 14.3 % (11.6-15.6); WHITE BLOOD COUNT 6.1 K/mm3 (4.0-10.0)
[2024-06-19 09:12] LABS: POTASSIUM 3.2 mmol/L (3.5-5.1)
[2024-06-19 09:29] LABS: BLOOD UREA NITROGEN 17.8 mg/dL (7-18); CALCIUM 8.7 mg/dL (8.5-10.1); MAGNESIUM 2.1 mg/dL (1.8-2.4)
[2024-06-19 09:33] LABS: CREATININE 0.7 mg/dL (0.55-1.3); PHOSPHOROUS 2.4 mg/dL (2.5-4.9)
[2024-06-19] MEDS: ACETAMINOPHEN 1000 MG/100 ML BAG IVPB PRN (11:51)
[2024-06-19] MEDS: D5-1/2NS+10 MEQ KCL - 10 MEQ/1,000 ML INFUS.BAG IV SCH (12:03)
[2024-06-20 10:52] LABS: BASO % 0.5 % (0-2.0); EOS % 0.7 % (0-4.5); HEMATOCRIT 43.6 % (32.4-45.2); HEMOGLOBIN 14.6 GM/dL (10.7-15.3); LYMPH % 18.5 % (8-40); MCH 32.7 pg (25.7-33.7); MCHC 33.4 g/dl (32.0-36.0); MEAN CELL VOLUME 97.9 fl (80-96); NEUT % 71.3 % (42.8-82.8); PLATELET COUNT 252 10^3/uL (134-434); RBC 4.46 M/mm3 (3.60-5.2); RDW 13.8 % (11.6-15.6); WHITE BLOOD COUNT 7.3 K/mm3 (4.0-10.0)
[2024-06-20 11:15] LABS: ALBUMIN 2.8 g/dl (3.4-5.0); BLOOD UREA NITROGEN 15.7 mg/dL (7-18); CALCIUM 8.9 mg/dL (8.5-10.1)
[2024-06-20 11:19] LABS: CREATININE 0.6 mg/dL (0.55-1.3)
[2024-06-20 11:20] LABS: BILIRUBIN,TOTAL 0.6 mg/dL (0.2-1); TOT PROT 6.5 g/dl (6.4-8.2)
[2024-06-20] MEDS: ACETAMINOPHEN 1000 MG/100 ML BAG IVPB PRN (21:09)
[2024-06-22] MEDS ORDERED: PATIENT'S OWN MEDICATION (NON-FORMULARY) (Dapagliflozin Propanediol 10 MG Tablet) PO SCH (10:00)
[2024-06-22] MEDS: APIXABAN 5 MG TABLET PO SCH (10:22)
[2024-06-22] MEDS: ACETAMINOPHEN 325 MG TABLET (FP) PO PRN (16:30)
[2024-06-22] MEDS: ROSUVASTATIN CA 5 MG TABLET PO SCH (21:17)
[2024-06-24 10:37] VITALS: BP 117/80; PULSE 88; RESP 18; TEMP 98.6
== END 2024-06-24 15:54 | disposition home or self-care (01) | DRG 390 ==
LOC: JER 20:16 → JERBED 06-18 01:10 → J8W 06-18 13:44
PROVIDERS: ADMIT Internal Medicine; ATTEND Family Medicine
PROC: 0D9670Z Drainage of Stomach with Drainage Device, Via Natural or Artificial Opening (ICD-10-PCS; principal; 2024-06-18)
DX: K56.609 Unspecified intestinal obstruction, unspecified as to partial versus complete obstruction (principal); Z79.01 Long term (current) use of anticoagulants; E11.9 Type 2 diabetes mellitus without complications; E78.5 Hyperlipidemia, unspecified; I10 Essential (primary) hypertension; E86.0 Dehydration; R00.0 Tachycardia, unspecified; I48.0 Paroxysmal atrial fibrillation; F32.A Depression, unspecified
CPT/HCPCS: 0241U-QW; 36415; 71045-TC-FY; 74019-TC-FY; 74176-TC; 80048; 80053; 81003; 82962; 83605; 83690; 83735; 84100; 84484; 85025; 85610; 85651; 85730; 86140; 86850; 86900; 86901; 87086; 93005; 93010; 99285-25; J0131